=== PATIENT | female | born 1955 | race Asian ===

== ENCOUNTER 2022-08-09 19:26 | Emergency (ER) | payer OTHER ==
[2022-08-09 19:28] VITALS: BP 137/72
[2022-08-09] MEDS ORDERED: PROPARACAINE 0.5% OPHTH SOL 15ML OD ONE (21:25)
[2022-08-09] MEDS ORDERED: FLUORESCEIN OPHTH 1MG STRIP OD ONE (21:25)
== END 2022-08-09 22:09 | disposition home or self-care (01) ==
LOC: M ED 19:26
DX: H11.31 Conjunctival hemorrhage, right eye (principal); G89.18 Other acute postprocedural pain; I10 Essential (primary) hypertension; Z79.82 Long term (current) use of aspirin

== ENCOUNTER → 2024-11-17 | Outpatient (CLI) | payer OTHER | LOC: M WHC 09:48 | PROVIDERS: ATTEND Advanced Practice Midwife | DX: R39.89 Other symptoms and signs involving the genitourinary system (principal); N88.8 Other specified noninflammatory disorders of cervix uteri; R93.89 Abnormal findings on diagnostic imaging of other specified body structures ==

== ENCOUNTER → 2024-12-05 | Outpatient (REF) | payer OTHER | LOC: M SFHCADAM 10:55 | PROVIDERS: ATTEND Family Medicine | DX: R51.9 Headache, unspecified (principal) ==

== ENCOUNTER → 2024-12-05 | Outpatient (CLI) | payer OTHER | LOC: M ADAMS 11:04 | PROVIDERS: ATTEND Family Medicine | DX: M54.9 Dorsalgia, unspecified (principal) ==

== ENCOUNTER → 2025-01-10 | Outpatient (REF) | payer OTHER ==
[2025-01-10 13:44] LABS: ALT/SGPT 16 U/L (7.0-40); AST/SGOT 16 U/L (<34); CALCIUM LEVEL 10.0 MG/DL (8.3-10.6); CARBON DIOXIDE LEVEL 28 MMOL/L (20-31); CHLORIDE LEVEL 108 MMOL/L (98-107); CREATININE FOR GFR 0.68 MG/DL (0.55-1.30); GLOMERULAR FILTRATION RATE > 90.0 (>39); POTASSIUM SERUM 4.6 MMOL/L (3.5-5.1); SODIUM LEVEL 143 MMOL/L (136-145)
== END ==
LOC: M SFHCADAM 09:36
PROVIDERS: ATTEND Family Medicine
DX: M25.50 Pain in unspecified joint (principal)

== ENCOUNTER → 2025-01-10 | Outpatient (CLI) | payer OTHER | LOC: M ADAMS 09:39 | PROVIDERS: ATTEND Family Medicine | DX: M25.512 Pain in left shoulder (principal); R93.6 Abnormal findings on diagnostic imaging of limbs ==

== ENCOUNTER → 2025-01-13 | Outpatient (CLI) | payer OTHER ==
[~2025-01-13] MED LIST: PROHANCE 279.3MG/ML 5ML VIAL ONE
== END ==
LOC: M PLAIMG 09:05
PROVIDERS: ATTEND Family Medicine
DX: R51.9 Headache, unspecified (principal); J01.00 Acute maxillary sinusitis, unspecified; I67.82 Cerebral ischemia
CPT/HCPCS: 70553; A9579